=== PATIENT | female | born 1990 | race Caucasian/White ===

== ENCOUNTER 2024-03-16 16:13 | Inpatient (IN) | payer OTHER, SELFPAY ==
[2024-03-16] VITALS (23 sets, daily range): BP systolic 93–149; BP diastolic 51–87; PULSE 81–141; TEMP 34.9–37
[2024-03-16 17:09] LABS: Hematocrit 37.7 % (36.0-48.0); Hemoglobin 13.4 g/dL (12.0-16.0); Mean Corpuscular HGB Conc 35.5 g/dL (29.9-35.2); Mean Corpuscular Hemoglobin 34.3 pg (26.7-34.0); Mean Corpuscular Volume 96.4 fL (81.0-99.0); Mean Platelet Volume 10.3 fL (9.5-13.5); Platelet Count 145 10^3/uL (150-450); Red Blood Count 3.91 10^6/uL (4.20-5.40); Red Cell Distribution Width 13.1 % (11.0-15.0); White Blood Count 9.1 10^3/uL (4.0-11.0)
[2024-03-16 17:27] LABS: Amphetamine Screen Urine NEGATIVE (NEGATIVE); Barbiturates Screen Urine NEGATIVE (NEGATIVE); Benzodiazepines Screen Urine NEGATIVE (NEGATIVE); Buprenorphine Screen Urine NEGATIVE (NEGATIVE); Cannabinoid Screen Urine NEGATIVE (NEGATIVE); Cocaine Screen Urine NEGATIVE (NEGATIVE); Methadone Screen Urine NEGATIVE (NEGATIVE); Methamphetamines Screen Urine NEGATIVE (NEGATIVE); Opiate Screen Urine NEGATIVE (NEGATIVE); Oxycodone Screen Urine NEGATIVE (NEGATIVE); Phencyclidine Screen Urine NEGATIVE (NEGATIVE); Tricyclic Antidepressant Urine NEGATIVE (NEGATIVE)
[2024-03-16] MEDS: LACTATED RINGER'S SOLUTION 1,000 ML 125 ML IV (18:10)
[2024-03-16] MEDS: ROPIVACAINE HCL/PF 400 MG/200 ML PREMIX 6 MG EPIDURAL (18:56)
[2024-03-16] MEDS: LACTATED RINGER'S SOLUTION 1,000 ML 999 ML IV (19:09)
--- NOTE | 2024-03-16 19:57 | W.PC.ACHO ---
Registration Status: ADM IN Primary Language: Congolese Preferred Language: Congolese RN reports to Humberto Ratliff RN. at 1900 at bedside. Active Medications Generic Name Dose Route Start Last Admin Trade Name Freq PRN Reason Stop Dose Admin Carboprost Tromethamine 250 mcg 03/16/24 16:23 Carboprost Tromethamine 250 Mcg/Ml 1 Ml Vial IM 03/18/24 16:23 Q15M PRN Bleeding Ephedrine Sulfate 5 mg 03/16/24 18:27 Ephedrine Sulfate 50 Mg/Ml Vial IV 03/17/24 18:28 Q5M PRN Blood Pressure - Low Lactated Ringer's 1,000 mls @ 125 mls/hr 03/16/24 16:30 03/16/24 19:09 Lactated Ringers IV 999 mls/hr .Q8H CAIN Administration Oxytocin/Sodium Chloride 10 units in 500 mls @ 6 mls/hr 03/16/24 17:00 Pitocin 10 Unit/500 Ml-Ns IV TITR CAIN Protocol 2 MILLIUNIT/MIN Oxytocin/Sodium Chloride 20 units in 1,000 mls @ 125 mls/hr 03/16/24 17:00 Pitocin 20 Unit/1,000 Ml-Ns IV Q8H PRN POST DELIVERY Ropivacaine/Sodium Chloride 400 mg in 200 mls @ 6 mls/hr 03/16/24 18:30 03/16/24 18:56 Naropin 0.2% 400 Mg/200 Ml Bag EPIDURAL 6 mls/hr Q24H CAIN Administration Lidocaine 5 ml 03/16/24 16:23 Lidocaine Viscous 2% 15 Ml Solution TOPICAL ONCE PRN Pain Lidocaine 1 ml 03/16/24 16:23 Lidocaine Hcl 1% 200 Mg/20 Ml Mdv INJ ONCE PRN Pain Methylergonovine Maleate 0.2 mg 03/16/24 16:23 Methylergonovine Maleate 0.2 Mg/Ml Ampule IM 03/18/24 16:23 ONCE PRN Uterine Contractility/Contract Methylergonovine Maleate 0.2 mg 03/16/24 16:23 Methylergonovine Maleate 0.2 Mg Tablet PO 03/18/24 16:23 Q4H PRN Uterine Contractility/Contract Misoprostol 600 mcg 03/16/24 16:23 Misoprostol 100 Mcg Tablet PO 03/18/24 16:23 ONCE PRN Uterine Bleeding Misoprostol 800 mcg 03/16/24 16:23 Misoprostol 100 Mcg Tablet SL 03/18/24 16:23 ONCE PRN Uterine Bleeding Misoprostol 1,000 mcg 03/16/24 16:23 Misoprostol 100 Mcg Tablet MD 03/18/24 16:23 ONCE PRN Uterine Bleeding Ondansetron HCl 4 mg 03/16/24 16:23 Ondansetron Pf 4 Mg/2 Ml Vial IV Q6H PRN Nausea And Vomiting Ondansetron HCl 4 mg 03/16/24 16:23 Ondansetron 4 Mg Rapdis Tablet SL Q6H PRN Nausea And Vomiting Oxytocin 10 unit 03/16/24 16:23 Oxytocin 10 Unit/Ml Vial IM 03/18/24 16:23 ONCE PRN Bleeding Diet Category Date Time Status Regular Consistency Diet Diet 03/16/24 16:24 Active Consults Category Date Time Status Consult to Anesthesiology Routine Cons 03/16/24 Ordered IV Insertion/Site Date of IV Line Insertion [ 03/16/24 Short PIV (<1.75 in) 20g left Hand] IV Insertion Time [Short PIV ( 16:48 <1.75 in) 20g left Hand] Neurology Patient orientation (short person,place,time,situation list)
--- NOTE | 2024-03-16 20:00 | PM.OBHP ---
OB - H&P: HPI History of Present Illness Chief complaint: LABOR : 1 Para: 0 Gestational age based on last menstrual period: 39.4 History of Present Dating criteria: LMP confirmed by 1st trimester US care: good care Ultrasounds: normal 1st trimester US and normal mid trimester US Narrative: history of HSV2, thorough exam of vagina and labia and no lesions or signs of outbreak noted. Patient denies outbreak for several years Labs Blood type: A (+) positive Rubella: immune RPR/VDLR: nonreactive GBS status: negative HBsAG: negative Review of Systems ROS Status of ROS: 10 or more systems reviewed and unremarkable except as noted in history and below [facility] Medical History (Updated 03/16/24 @ 17:25 by Amanda Murillo) Lymph nodes enlarged ?R59.9 - Enlarged lymph nodes, unspecified (ICD-10) Family History (Updated 03/16/24 @ 17:14 by Amanda Murillo) Grandmother Family history of diabetes mellitus Family history of hypertension Family history of myocardial infarction Grandmother No problems noted. Grandfather Family history of diabetes mellitus Family history of hypertension Family history of myocardial infarction Social History (Updated 03/16/24 @ 17:15 by Amanda Murillo) Within the past year, how often did you have a drink containing alcohol: never Score interpretation: A score less than 3 is consistent with normal alcohol consumption. Smoking status: Never smoker Non-prescribed substance use: denies use Highest level of school completed/degree received: Bachelor's degree Are you now , , , , never or living with a partner: In a typical week, how many times do you talk on the telephone with family, friends, or neighbors: 3 or more times per week How often do you get together with friends or relatives: 3 or more times per week How often do you attend temple or religion services: 4 or more times per year Little interest or pleasure in doing things: not at all Feeling down, depressed, or hopeless: not at all Feel stressed/tense/nervous/anxious/difficulty sleeping: not at all Do you think of yourself as: straight/heterosexual Gender Identity: female Meds Home Medications and Allergies Allergies Allergy/AdvReac Type Severity Reaction Status Date / Time No Known Drug Allergies Allergy Verified 03/16/24 17:25 Exam Constitutional Vital Signs, click to edit/add: Last Vital Signs Temp 97.2 F L 03/16/24 19:29 Pulse 93 H 03/16/24 19:53 BP 99/54 03/16/24 19:53 Documenting provider has reviewed patient's vital signs: yes Common normals: no apparent distress, average body habitus, oriented x3, no limitations, healthy appearing, alert and well nourished HENHI Common normals: normocephalic Eye Common normals: EOMs intact bilaterally Neck & C-Spine Common normals: full ROM Lymph Lymphatic: no lymphadenopathy noted Chest Common normals: inspection of chest normal Respiratory Common normals: normal respiratory effort, no retractions, no use of accessory muscles and clear to auscultation bilaterally Cardio Common normals: regular rate and regular rhythm Rate: regular rate Rhythm: regular rhythm GI Common normals: Normal to inspection, nondistended, normoactive bowel sounds present, soft to palpation and non-tender Palpation: soft Common normals: no CVA tenderness, external appearance normal and appearance of the vagina normal Back & Pelvis Common normals: no CVA tenderness Extremity Common normals: normal to inspection and full ROM Neuro Common normals: oriented x3 Sensorium/orientation: awake, alert, oriented to person, oriented to place, oriented to time and orientation impaired Psych Common normals: mental status grossly normal, thought process normal, cooperative, affect normal, speech normal, activity/motor behavior normal, denies hallucinations, denies homicidal ideation and denies suicidal ideation Speech: normal speech Thought process: normal thought process Thought content: normal thought content Results Labs Labs: Short CBC 03/16/24 Range/Units 16:48 WBC 9.1 (4.0-11.0) 10^3/uL Hgb 13.4 (12.0-16.0) g/dL Hct 37.7 (36.0-48.0) % Plt Count 145 L (150-450) 10^3/uL OB - A/P Additional Plan Induction method: none Plan: expectant management
--- NOTE | 2024-03-16 20:08 | PM.EN ---
Event Note Event Note: 1807 to patient's room. assessment obtained. SVE 6-7/70/-2 sterile amnihook used and AROM performed with return of large amount of clear, odorless fluid. heart tones are stable before, during and after rupture of membranes.
[2024-03-17] VITALS (51 sets, daily range): BP systolic 92–143; BP diastolic 47–86; PULSE 65–122; TEMP 35.8–37.4; O2SAT 92–97
--- NOTE | 2024-03-17 01:06 | PM.EN ---
Event Note Event Note: 0040 Class B low transverse primary called. patient has been complete and pushing since [id number] without delivery. baby has not descended past 0 station, caput noted on head, maternal exhaustion. Dr Rojas notified and report given and agrees to proceed with section.
[2024-03-17] MEDS: LACTATED RINGER'S SOLUTION 1,000 ML 1000 ML IV (01:12)
[2024-03-17] MEDS: CITRIC ACID/SODIUM CITRATE 30 ML SOLUTION ORACIT SHOHL'S SOLN PO (01:14)
[2024-03-17] MEDS: METOCLOPRAMIDE HCL 10 MG/2 ML VIAL IVP (01:14)
[2024-03-17] MEDS: FAMOTIDINE/PF 20 MG/2 ML VIAL IV (01:14)
[2024-03-17] MEDS: LIDOCAINE VISCOUS 2% 15 ML SOLUTION 5 ML TOPICAL (01:28)
[2024-03-17] MEDS: CEFAZOLIN SODIUM/DEXTROSE,ISO 2 GM/50 ML PIGGYBACK IV (01:45)
[2024-03-17] MEDS: LACTATED RINGER'S SOLUTION 1,000 ML 50 ML IV ×2 (02:00→02:33)
[2024-03-17] MEDS: METHYLERGONOVINE MALEATE 0.2 MG/ML AMPULE 0.200000000000000011 MG IM (02:23)
[2024-03-17] MEDS: 0.9 % SODIUM CHLORIDE 10 ML VIAL 20 ML IV (02:41)
[2024-03-17] MEDS: BUPIVACAINE LIPOSOME/PF 266 MG/13.3 ML VIAL INJ (02:42)
[2024-03-17] MEDS: BUPIVACAINE HCL 0.5% PF 50 MG/10 ML VIAL INJ (02:42)
--- NOTE | 2024-03-17 02:51 | P.EN_ITS ---
Event Note Event Note: Airline Reservation Agent Note: I first assisted Dr Rojas with primary section. I assisted as directed by physician. I independently closed the SQ layer with 3-0 vicryl and then closed the incision with 4-0 vicryl on a Domo needle without difficulty. Hemostasis noted at completion of closure. Patient tolerated the procedure well.
[2024-03-17] MEDS: OXYTOCIN/0.9 % SODIUM CHLORIDE 20 UNITS/1,000 ML PLAST..BAG 125 UNIT IV (03:27)
[2024-03-17] MEDS: CEFAZOLIN SODIUM/DEXTROSE,ISO 1 GM/50 ML IV.SOLN IV (08:16)
[2024-03-17] MEDS: KETOROLAC TROMETHAMINE 30 MG/ML VIAL IVP ×3 (08:17→20:40)
[2024-03-17] MEDS: ACETAMINOPHEN 500 MG TABLET 1000 MG PO ×2 (10:12→18:34)
--- NOTE | 2024-03-17 11:32 | RESP.RT ---
done per nursing
--- NOTE | 2024-03-17 12:07 | P.EN_ITS ---
Event Note Event Note: THIS IS A PATIENT OF AMARJIT OLEARY. AMARJIT WAS MANAGING HER LABOR. THIS PATIENT PROGRESSED TO COMPLETE DILATION. HOWEVER, AFTER 4 HOURS OF ADEQUATE PUSHING THERE WAS NO EXCEPT FOR CAPUT. SUSPECT CPD AND ASCYNCLITIC. THE CS CONSENT WAS SIGNED AND THE INDICATION FOR SURGERY WAS EXPLAINED TO PATIENT AND HER WITH STATED UNDERSTANDING AND AGREEMENT. THE INSPECTOR GENERAL DOSED THE EPIDURAL IN THE PATIENT'S ROOM. THE PATIENT WAS BROUGHT TO THE OPERATING ROOM AND POSITIONED ON THE OPERATING TABLE WITH A WEDGE UNDER THE RIGHT FLANK. THE ANESTHETIC MONITORS WERE APPLIED. THE ANDRADE CATHETER WAS ALREADY IN AND DRAINING BLOOD TINGED URINE DUE TO THE PROLONGED PUSHING. THE PATIENT WAS PREPPED AND DRAPPED IN STERILE FASHION. THE TIME OUT WAS PERFORMED. ANESTHETIC LEVEL WAS ASSESSED TO BE ADEQUATE. A PFANNENSTIEL INCISION WAS MADE TWO FINGER BREATHS ABOVE THE PUBIC SYMPHYSIS BONE. THIS WAS CARRIED DOWN TO THE FASCIA WHICH WAS NICKED IN THE MIDLINE. THE FASCIA WAS THEN INCISED THE FULL EXTENT OF THE SKIN INCISION WITH THE BERNAL CURVED SCISSORS. THE SUPERIOR AND INFERIOR BORDER OF THE FASCIA WAS DISSECTED AWAY FROM THE MUSCLE USING THE BOVIE ON CUTTING CURRENT AT 40. THE RECTUS ABDOMINIS MUSCLE WAS IN THE MIDLINE WITH A HEMOSTAT AND MANUALLY STRETCHED TO REVEAL THE PERITONEUM. THE PERITONEUM WAS TENTED AND INCISED WITH THE KAROLYN SCISSORS WELL ABOVE THE BLADDER AND THIS OPENING WAS MANUALLY STRETCHED. THE BLADDER BLADE WAS PLACED AND THE BLADDER FLAP WAS DEVELOPED WITH THE KAROLYN SCISSORS AND THE ADSEN PICKUPS. THE BLADDER BLADE WAS THEN REPOSITIONED. THE UTERUS WAS INCISIED TWO INCHES WITH THE SCALPEL BLADE AND THE HYSTEROTOMY WAS MANUALLY WIDENED. THE RIGHT HAND OF THE SURGEON WAS PLACED AROUND THE CAPUT WHICH WAS DEEP IN THE PELVIS. THE HEAD WAS ASYNCLITIC. THE HEAD WAS PUSHED CEPHALAD AND WHEN AT THE HYSTEROTOMY SITE DELIVERED WITH GENTLE FUNDAL PRESSURE. THERE WAS NO NUCHAL CORD. THE SHOULDERS AND TORSO WERE THEN DEVLIVERED WITH CONTINUED FUNDAL PRESSURE. THE BABY BOY WAS VIGOROUS AND CRYING ON DELIVERY. THERE WAS DELAYED CORD CLAMPING AT WHICH TIME THE BABY WAS TAKEN TO THE ISOLETET FOR ASSESSMENT AND CARE. AFTER THE NPR TEAM WERE DONE WITH THEIR ASSESSMENT THE WAS PLACED SKIN TO SKIN ON MOTHER'S CHEST. CORD BLOOD WAS OBTAINED. THE PLACENTA WAS MANUALLY EXTRACTED INTACT AND NOT SENT TO PATHOLOGY. THE UTERUS WAS EXTERIORIZED AND SWEPT DEMONSTRATING NO POC. THE HYSTEROTOMY WAS CLOSED IN A SINGLE LAYER WITH O VICRYL IN A LOCKING STITCH. HEM OSTASIS WAS ADQUATE. THE PELVIS WAS IRRIGATED WITH NS. THERE WERE NO ACTIVE BLEEDING POINTS. THE UTERUS WAS RETURNED TO ITS NORMAL ANATOMIC POSITION. THE UTERINE INCISION REMAINED DRY AND INTACT. THE INSTRUMENT, LAP SPONGE AND NEEDLE COUNT WERE CORRECT TIMES TWO. THE FASCIA WAS CLOSED WITH O VICRYL IN A RUNNING STITCH LOCKING THE FIRST STITCH. THE FASCIA WAS CLOSED WITH 3 - 0 CHROMIC USING INTERRUPTED SIMPLE STITCHES. THE SKIN WAS CLOSED WITH 4 - 0 VICRYL USING A SUBCUTICULAR STITCH. THE FINAL COUNT WAS CORRECT. A STERILE DRESSING WAS APPLIED AND THE PATIENT WAS BROUGHT BACK TO [facility] IN HEMODYNAMICALLY STABLE CONDITION.
[2024-03-17] MEDS: ENOXAPARIN SODIUM 40 MG/0.4 ML SYRINGE SUBQ (16:55)
[2024-03-17] MEDS: GLYCERIN/WITCH HAZEL PADS 1 PAD TOPICAL (19:25)
--- NOTE | 2024-03-17 19:45 | W.PC.ACHO ---
Registration Status: ADM IN Primary Language: Vietnamese Preferred Language: Vietnamese Report given to Jeanette at 1900. Active Medications Generic Name Dose Route Start Last Admin Trade Name Freq PRN Reason Stop Dose Admin Acetaminophen 1,000 mg 03/17/24 10:00 03/17/24 18:34 Acetaminophen 500 Mg Tablet PO 03/19/24 02:55 1,000 mg Q8H CAIN Administration Al Hydroxide/Mg Hydroxide 2,400 mg 03/17/24 02:53 Magnesium Hydroxide 2,400 Mg/10 Ml Oral.Susp PO Q6H PRN Dyspepsia Carboprost Tromethamine 250 mcg 03/16/24 16:23 Carboprost Tromethamine 250 Mcg/Ml 1 Ml Vial IM 03/18/24 16:23 Q15M PRN Bleeding Diphenhydramine HCl 25 mg 03/17/24 02:58 Diphenhydramine Hcl 50 Mg/Ml Vial IV 03/18/24 02:59 Q6H PRN Itching Diphtheria/Pertussis/Tetanus Vacc 0.5 ml 03/19/24 09:00 Adacel Diph,Pertuss(Acell),Tet Vac/Pf 0.5 Ml Adult Syringe IM 03/19/24 09:01 .ONCE ONE Docusate Sodium 100 mg 03/18/24 09:00 Docusate Sodium 100 Mg Capsule PO BID CAIN Enoxaparin Sodium 40 mg 03/17/24 14:30 03/17/24 16:55 Enoxaparin Sodium 40 Mg/0.4 Ml Syringe SUBQ 40 mg Q24H CAIN Administration Lactated Ringer's 1,000 mls @ 125 mls/hr 03/16/24 16:30 03/16/24 19:09 Lactated Ringers IV 999 mls/hr .Q8H CAIN Administration Ropivacaine/Sodium Chloride 400 mg in 200 mls @ 6 mls/hr 03/16/24 18:30 03/16/24 18:56 Naropin 0.2% 400 Mg/200 Ml Bag EPIDURAL 6 mls/hr Q24H CAIN Administration Lactated Ringer's 1,000 mls @ 50 mls/hr 03/17/24 02:30 03/17/24 02:00 Lactated Ringers IV 50 mls/hr .Q20H CAIN Administration Lactated Ringer's 1,000 mls @ 50 mls/hr 03/17/24 03:00 03/17/24 02:33 Lactated Ringers IV 50 mls/hr .Q20H CAIN Administration Lactated Ringer's 1,000 mls @ 125 mls/hr 03/17/24 03:00 Lactated Ringers IV .Q8H CAIN Oxytocin/Sodium Chloride 10 units in 500 mls @ 6 mls/hr 03/16/24 21:00 Pitocin 10 Unit/500 Ml-Ns IV TITR [facility] Protocol 2 MILLIUNIT/MIN Ibuprofen 800 mg 03/18/24 03:00 Ibuprofen 400 Mg Tablet PO Q6H [facility] Ketorolac Tromethamine 30 mg 03/17/24 08:30 03/17/24 14:33 Ketorolac Tromethamine 30 Mg/Ml Vial IVP 03/17/24 20:31 30 mg Q6H [facility] Administration Lidocaine 5 ml 03/16/24 16:23 03/17/24 01:28 Lidocaine Viscous 2% 15 Ml Solution TOPICAL 5 ml ONCE PRN Administration Pain Lidocaine 1 ml 03/16/24 16:23 Lidocaine Hcl 1% 200 Mg/20 Ml Mdv INJ ONCE PRN Pain Measles/Mumps/Rubella Vaccine Live 0.5 ml 03/19/24 09:00 Measles,Mumps,Rubella Vacc/Pf 0.5 Ml Vial SQ 03/19/24 09:01 .ONCE ONE Methylergonovine Maleate 0.2 mg 03/16/24 16:23 Methylergonovine Maleate 0.2 Mg/Ml Ampule IM 03/18/24 16:23 ONCE PRN Uterine Contractility/Contract Methylergonovine Maleate 0.2 mg 03/16/24 16:23 Methylergonovine Maleate 0.2 Mg Tablet PO 03/18/24 16:23 Q4H PRN Uterine Contractility/Contract Methylergonovine Maleate 0.2 mg 03/17/24 02:22 03/17/24 02:23 Methylergonovine Maleate 0.2 Mg/Ml Ampule IM 0.2 mg ONCE PRN Administration Uterine Contractility/Contract Misoprostol 600 mcg 03/16/24 16:23 Misoprostol 100 Mcg Tablet PO 03/18/24 16:23 ONCE PRN Uterine Bleeding Misoprostol 800 mcg 03/16/24 16:23 Misoprostol 100 Mcg Tablet SL 03/18/24 16:23 ONCE PRN Uterine Bleeding Misoprostol 1,000 mcg 03/16/24 16:23 Misoprostol 100 Mcg Tablet AR 03/18/24 16:23 ONCE PRN Uterine Bleeding Ondansetron HCl 4 mg 03/16/24 16:23 Ondansetron Pf 4 Mg/2 Ml Vial IV Q6H PRN Nausea And Vomiting Ondansetron HCl 4 mg 03/16/24 16:23 Ondansetron 4 Mg Rapdis Tablet SL Q6H PRN Nausea And Vomiting Ondansetron HCl 4 mg 03/17/24 02:53 Ondansetron Pf 4 Mg/2 Ml Vial IV Q6H PRN Nausea And Vomiting Ondansetron HCl 4 mg 03/17/24 02:53 Ondansetron 4 Mg Rapdis Tablet PO Q6H PRN Nausea And Vomiting Oxycodone HCl 5 mg 03/17/24 02:53 Oxycodone Hcl 5 Mg Tablet PO Q4H PRN Breakthrough Pain Oxycodone/Acetaminophen 1 tab 03/17/24 02:53 Oxycodone Hcl/Acetaminophen 5mg/325mg PO Q4H PRN Pain Scale 4-6 Oxytocin 10 unit 03/16/24 16:23 Oxytocin 10 Unit/Ml Vial IM 03/18/24 16:23 ONCE PRN Bleeding Simethicone 80 mg 03/17/24 02:53 Simethicone 80 Mg Tab.Chew PO QID PRN Abdominal Distention Witch Daysi/Glycerin 1 pad 03/17/24 19:37 Glycerin/Witch Daysi Pads TOPICAL Q2H PRN Pain Diet Category Date Time Status Regular Consistency Diet Diet 03/17/24 02:54 Active Neurology Mariama coma scale total score 15 [place] coma scale total score 15 [place]ama coma scale total score 15 [place] coma scale total score 15 [place] coma scale total score 15 [place] coma scale total score 15 [place] coma scale total score 15 Respiratory Pulse Oximetry 96 Pulse Oximetry 95 Pulse Oximetry 93 Pulse Oximetry 92 Pulse Oximetry 94 Pulse Oximetry 94 Pulse Oximetry 93 Pulse Oximetry 95 Pulse Oximetry 94 Pulse Oximetry 93 Pulse Oximetry 95 Pulse Oximetry 95 Pulse Oximetry 96 Pulse Oximetry 95 Pulse Oximetry 96 Pulse Oximetry 95 Pulse Oximetry 96 Pulse Oximetry 96 Pulse Oximetry 95 Pulse Oximetry 95 Pulse Oximetry 96 Pulse Oximetry 97 Pulse Oximetry 95 Pulse Oximetry 95 Pulse Oximetry 96 Pulse Oximetry 96 Pulse Oximetry 96 Pulse Oximetry 97 Pulse Oximetry 96 Oxygen Delivery Method Room Air Oxygen Delivery Method Room Air Oxygen Delivery Method Room Air Oxygen Delivery Method Room Air Oxygen Delivery Method Room Air Oxygen Delivery Method Room Air Oxygen Delivery Method Room Air Oxygen Delivery Method Room Air Oxygen Delivery Method Room Air Oxygen Delivery Method Room Air Bowels Bowel Pattern No Bowel Movement Bowel Pattern No Bowel Movement Bowel Pattern No Bowel Movement Renal Bladder Pattern Continent Bladder Pattern Continent Catheter Urinary Catheter Date of 03/16/24 Insertion [Urethral] Urinary Catheter Date of 03/16/24 Insertion [Urethral] Urinary Catheter Date of 03/16/24 Insertion [Urethral] Urinary Catheter Date of 03/16/24 Insertion [Urethral] Urinary Catheter Time of 19:45 Insertion [Urethral] Urinary Catheter Time of 19:45 Insertion [Urethral] Urinary Catheter Time of 19:45 Insertion [Urethral] Urinary Catheter Time of 19:45 Insertion [Urethral]
[2024-03-18 00:52] VITALS: BP 112/64; PULSE 71; TEMP 35.8
[2024-03-18 01:00] VITALS: TEMP 36.7; O2SAT 96
[2024-03-18] MEDS: IBUPROFEN 400 MG TABLET 800 MG PO ×3 (03:15→15:01)
[2024-03-18] MEDS: ACETAMINOPHEN 500 MG TABLET 1000 MG PO ×2 (06:21→15:00)
[2024-03-18 06:43] LABS: Basophils Percent Auto 0.2 % (0.2-2.0); Eosinophils Absolute Auto 0.1 10^3/uL (0.0-0.7); Eosinophils Percent Auto 0.7 % (0.9-7.0); Hematocrit 32.4 % (36.0-48.0); Immature Granulocytes Abs Auto 0.06 10^3/uL (0.00-0.03); Immature Granulocytes Pct Auto 0.5 % (0.0-0.5); Lymphocytes Absolute Auto 1.7 10^3/uL (1.2-3.8); Lymphocytes Percent Auto 13.7 % (20.5-60.0); Mean Corpuscular Hemoglobin 34.4 pg (26.7-34.0); Mean Corpuscular Volume 101.3 fL (81.0-99.0); Mean Platelet Volume 9.9 fL (9.5-13.5); Monocytes Absolute Auto 0.7 10^3/uL (0.3-0.8); Monocytes Percent Auto 5.9 % (1.7-12.0); Neutrophils Absolute Auto 9.6 10^3/uL (1.4-6.5); Platelet Count 132 10^3/uL (150-450); Red Cell Distribution Width 13.5 % (11.0-15.0); White Blood Count 12.2 10^3/uL (4.0-11.0)
[2024-03-18] MEDS: DOCUSATE SODIUM 100 MG CAPSULE PO (09:10)
[2024-03-18 09:11] VITALS: BP 110/60; PULSE 73
--- NOTE | 2024-03-18 12:39 | PM.OBDS ---
DS: Providers Provider Date of admission: 03/16/24 16:13 Primary care physician: Non-Staff Physician, Admitting clinician: SRINATH OLEARY Consults: 03/16/24 Consult to Anesthesiology Routine Consulting Provider: Doe Cole II Reason for consultation: Epidural Discharging clinician: Cindy Rojas Anticipated date of discharge: 03/18/24 DS: Diagnosis Discharge Diagnosis (1) delivery delivered: Assessment and plan: CLINICAL EXAM NONFOCAL, REQUESTING DISCHARGE, FOLLOW UP ARRANGED, IS BREAST FEEDING WITHOUT PROBLEM, KNOWS TO WEAR SPORTS BRA 18/05 IF DECIDES TO STOP BREAST FEEDING, WILL SEE AMARJIT IN A WEEK FOR INCISION CHECK Plan CONDITION GOOD S/P PRIMARY CS FOR CPD. SCRIPTS TO PATIENT FOR IBUPROFEN AND PERCOCET, ALL QUESTIONS ANSWERED WITH STATED UNDERSTANDING, CALL FOR PROBLEM OR CONCERN OB - DS: Summary Hospital Course Hospital Course: UNCOMPLICATED Time spent discussing smoking cessation with patient: 3 to 10 minutes Peripartum Data - Procedures: Procedures Operation Date: 03/17/24 01:30 Actual Procedure Side Surgeon p with delivery of viable baby boy Not Applicable Cindy Rojas MD Peripartum Data - Vaginal Delivery Procedures: Procedures Operation Date: 03/17/24 01:30 Actual Procedure Side Surgeon p with delivery of viable baby boy Not Applicable Cindy Rojas MD Complications complications: none Infant Delivery method: section Gender: male Discharge plan: home Status at Discharge Cognitive/behavioral status at discharge: WNL Functional status at discharge: independent ambulation Overall status at discharge: patient is progressing back to baseline Time Spent with Patient Time attestation: Total time spent providing and/or coordinating discharge services: Time spent: less than 30 minutes Specific discharge activities: SEE ABOVE Exam Narrative Exam Narrative: REQUESTING TO GO HOME Constitutional Vital Signs, click to edit/add: Last Vital Signs Temp 98.0 F 03/18/24 01:00 Pulse 73 03/18/24 09:11 Resp 16 03/18/24 09:15 BP 110/60 03/18/24 09:11 Pulse Ox 96 03/18/24 01:00 O2 Del Method Room Air 03/18/24 01:00 Common normals: no apparent distress, oriented x3, no limitations, healthy appearing, alert and well nourished General appearance: cooperative, comfortable, well kempt and well developed HENMT Common normals: normocephalic and head/scalp atraumatic Eye Pupil: PERRL and accommodation reflex normal Neck & C-Spine Common normals: full ROM and supple Chest Common normals: inspection of chest normal Respiratory Common normals: normal respiratory effort Cardio Common normals: regular rate and regular rhythm GI Common normals: Normal to inspection, nondistended, normoactive bowel sounds present Common normals: no CVA tenderness Back & Pelvis Common normals: no thoracic nor lumbar tenderness Extremity Common normals: normal to inspection, full ROM and no calf tenderness Neuro Common normals: oriented x3, CN's II-XII intact bilaterally, moves all extremities, no focal motor deficits and no sensory deficits noted Psych Common normals: mental status grossly normal, thought process normal, cooperative, affect normal and speech normal DS: Data Data Completed and Pending Labs on day of discharge: Labs from last 24 hours 03/18/24 06:37 WBC 12.2 H RBC 3.20 L Hgb 11.0 L Hct 32.4 L MCV 101.3 H MCH 34.4 H MCHC 34.0 RDW 13.5 Plt Count 132 L MPV 9.9 Neut % (Auto) 79.0 H Lymph % (Auto) 13.7 L [place] % (Auto) 5.9 Eos % (Auto) 0.7 L Baso % (Auto) 0.2 Neut # (Auto) 9.6 H Lymph # (Auto) 1.7 [place] # (Auto) 0.7 Eos # (Auto) 0.1 Baso # (Auto) 0.0 Abs Immat Gran (auto) 0.06 H Imm/Tot Granulo (auto) 0.5 Discharge Plan Discharge Disposition: Home, Self-Care Condition: Good Assessment: CLINICALLY STABLE, READY FOR DISCHARGE Health Concerns: NONE Plan of Treatment: DISCHARGE HOME. INSTRUCTIONS GIVEN. WILL FOLLOW UP WEDNESDAY FOR WEIGHT CHECK FOR BABY. WILL NEED TO FOLLOW UP WITH AMARJIT IN ONE WEEK FOR INCISION CHECK Activity: increase activity as tolerated Activity Detail: NO SEX SIX WEEKS, WALKING ONLY EXERCISE, MAY CLIMB STAIRS, NO BATHTUB SIX WEEKS, MAY SHOWER, NO CAR FOR 4 WEEKS EXCEPT TO APPOINTMENT, NO SWIMMING, NO BATHTUB, MAY SHOWER Diet: regular diet Print Language: Bots[place] Patient Instructions: (DC) Activity Restrictions/Additional Instructions: SEE ABOVE Forms: Portal Instructions Follow Up Appointments: WILL BRING BABY TO [facility] FOR WEIGHT CHECK WEDNESDAY, WILL FOLLOW UP WITH AMARJIT IN ONE WEEK FOR INCISION CHECK Discharge location: HOME
[2024-03-18] MEDS: ENOXAPARIN SODIUM 40 MG/0.4 ML SYRINGE SUBQ (15:00)
== END 2024-03-18 16:41 | disposition home or self-care (01) | DRG 787 ==
PROVIDERS: Admitting Provider Midwife; Visit Provider Obstetrics & Gynecology
PROC: (CPT 59514; principal; 2024-03-17 01:30)
DX: O33.9 Maternal care for disproportion, unspecified (principal); O98.32 Other infections with a predominantly sexual mode of transmission complicating childbirth; O32.4XX0 Maternal care for high head at term, not applicable or unspecified; A60.00 Herpesviral infection of urogenital system, unspecified; O75.81 Maternal exhaustion complicating labor and delivery; Z3A.39 39 weeks gestation of pregnancy; Z37.0 Single live birth
CPT/HCPCS: 36415; 51702; 64488; 80307; 85025; 85027; 86850; 86900; 86901; 94667; 94668; 96372; 96374; 96375; 96376